=== PATIENT | female | born 1940 | race Caucasian/White ===

== ENCOUNTER 2021-03-17 09:09 | Emergency (ER) | payer MEDICARE, BC ==
[2021-03-17] MEDS: Sodium Chloride 0.9% 1,000 ML IV SCH (09:54)
[2021-03-17] MEDS: Ondansetron 4 MG/2 ML SDV IVPUSH ONE (09:55)
[2021-03-17 10:05] LABS: CORONAVIRUS COVID-19 NAA NEGATIVE (NEGATIVE); RESPIRATORY SYNCYTIAL VIR NAA NEGATIVE (NEGATIVE)
[2021-03-17] MEDS ORDERED: guaiFENesin/Dextromethorphan 100-10 MG/5 ML Soln 5 ML Cup PO ONE (11:00)
== END 2021-03-17 12:15 | disposition home or self-care (01) ==
LOC: CC.ED 09:09
DX: R11.2 Nausea with vomiting, unspecified (principal); R05.9 Cough, unspecified; E87.1 Hypo-osmolality and hyponatremia; I10 Essential (primary) hypertension; K21.9 Gastro-esophageal reflux disease without esophagitis; Z79.899 Other long term (current) drug therapy; Z20.822 Contact with and (suspected) exposure to COVID-19
CPT/HCPCS: 0241U; 36415; 71045; 74019; 80053; 82150; 83690; 83735; 85025; 96374; 99284-25; J2405; J7030